=== PATIENT | female | born 1975 | race Caucasian/White ===

== ENCOUNTER 2024-09-03 12:33 | Emergency (ER) | payer BC, OTHER ==
[~2024-09-03] VITALS: Ht 157.5 cm; Wt 90.7 kg
[~2024-09-03 12:33] MED LIST: ACYCLOVIR800 MG PO
[2024-09-03 13:05] VITALS: PULSE 88; RESP 18; TEMP 102.5; O2SAT 100
[2024-09-03] MEDS: ONDANSETRON HCL 4 MG ORAL DISINTEGRATING TAB PO ONE (13:22)
[2024-09-03] MEDS ORDERED: ACETAMINOPHEN 325 MG TAB ONE (13:25)
[2024-09-03] MEDS: ACETAMINOPHEN 325 MG TAB PO ONE (13:25)
[2024-09-03] MEDS ORDERED: ONDANSETRON HCL 4 MG ORAL DISINTEGRATING TAB ONE (13:26)
[2024-09-03] MEDS ORDERED: ONDANSETRON ODT4 MG PO (13:28)
[2024-09-03] MEDS: IBUPROFEN 600 MG TAB PO STA (13:43)
== END 2024-09-03 13:59 | disposition home or self-care (01) ==
LOC: ER 13:02
DX: R50.9 Fever, unspecified (principal); B34.9 Viral infection, unspecified; R11.2 Nausea with vomiting, unspecified; R05.9 Cough, unspecified; R51.9 Headache, unspecified
CPT/HCPCS: 99282; Q0162